=== PATIENT | male | born 1985 | race American Indian/Alaskan Native ===

== ENCOUNTER 2017-08-18 23:15 | Emergency (ER) | payer SELFPAY ==
[2017-08-18 23:52] VITALS: BP 132/81
--- NOTE | 2017-08-19 00:26 | XRay Report ---
FINAL REPORT PROCEDURE: XR CHEST ROUTINE 2V TECHNIQUE: PA and lateral chest radiographs were obtained. CPT 20051 HISTORY: Cough and right rib pain. COMPARISON: No prior studies are available for comparison. FINDINGS: Heart: Normal. Mediastinum/Vessels: Normal. Lungs/Pleural space: Normal. Bony thorax: No acute osseous abnormality. Mild dextro scoliotic curvature of the thoracic lumbar spine. Other: IMPRESSION: No radiographic evidence of acute cardiopulmonary disease.
--- NOTE | 2017-08-19 03:36 | Emergency Department Report ---
Minor Respiratory - HPI Chief Complaint: Upper Respiratory Infection Stated Complaint: RT FLANK PAIN; GAMALIEL Time Seen by Provider: 08/19/17 03:33 Duration: 3 months Severity: mild Minor Respiratory: Yes Able to Tolerate Fluids, Yes Cough, No Rhinorrhea, No Sore Throat, No Ear Pain, No Sick Contacts, No Hemoptysis, No Chest Pain, No Shortness of Breath, No Fever Other History: Patient is a 31-year-old male with no medical history who presents to ED complaining of dry coughing for the past 3 months. Patient states that he get shortness of breath with exertion. Patient states his leisurely Black and mild smoker and does not to daily smoking or tobacco. He denies fever, chest pain, shortness of breath at rest, patient states he takes no medications. He denies any history of asthma and bronchitis. ED Review of Systems ROS: Stated complaint: RT FLANK PAIN; GAMALIEL Other details as noted in HPI Constitutional: denies: chills, fever Eyes: denies: eye pain, eye discharge, vision change ENT: denies: ear pain, throat pain Respiratory: cough, SOB with exertion. denies: shortness of breath, wheezing Cardiovascular: denies: chest pain, palpitations Endocrine: no symptoms reported Gastrointestinal: denies: abdominal pain, nausea, vomiting, diarrhea Genitourinary: denies: urgency, dysuria, frequency, discharge Musculoskeletal: denies: back pain, joint swelling, arthralgia Skin: denies: rash, lesions, pruritus Neurological: denies: headache, weakness, numbness, paresthesias, confusion Psychiatric: denies: anxiety, depression Hematological/Lymphatic: denies: easy bleeding, easy bruising ED Past Medical Hx - Past Medical History Previous Medical History?: No - Surgical History Past Surgical History?: No - Social History Smoking Status: Never Smoker Substance Use Type: None - Medications Home Medications: Home Medications Medication Instructions Recorded Confirmed Last Taken Type ALBUTEROL Inhaler [ProAir HFA 2 puff IH QID PRN #1 pump 08/19/17 Unknown Rx Inhaler] Acetamin/Codeine 120-12Mg/5 ml 5 ml PO TID PRN #60 ml 08/19/17 Unknown Rx [Tylenol/Codeine] guaiFENesin [Robitussin] 200 mg PO TID #80 ml 08/19/17 Unknown Rx predniSONE [Deltasone] 20 mg PO DAILY #4 tablet 08/19/17 Unknown Rx Minor Respiratory Exam - Exam General: Vital signs noted. No distress. Alert and acting appropriately. HEENT: Yes Moist Mucous Membranes, No Pharyngeal Erythema, No Pharyngeal Exudates, No Rhinorrhea, No Conjuctival Injection, No Frontal Tenderness, No Maxillary Tenderness Ear: Neither TM Bulge, Neither TM Erythema, Neither EAC Pain, Neither EAC Discharge Neck: Yes Supple, No Adenopathy Lungs: Yes Good Air Exchange, No Wheezes, No Ronchi, No Stridor, No Cough, No Labored Respirations, No Retractions, No Use of Accessory Muscles, No Other Abnormal Lung Sounds Heart: Yes Regular, No Murmur Abdomen: Yes Normal Bowel Sounds, No Tenderness, No Peritoneal Signs Skin: No Rash, No Edema Neurologic: Alert and oriented, no deficits. Musculoskeletal: Unremarkable. ED Course Vital Signs 08/18/17 23:47 Temperature 98.4 F Pulse Rate 85 Respiratory 20 Rate Blood Pressure 132/81 O2 Sat by Pulse 98 Oximetry ED Medical Decision Making - Radiology Data Radiology results: report reviewed, image reviewed FINAL REPORT PROCEDURE: XR CHEST ROUTINE 2V TECHNIQUE: PA and lateral chest radiographs were obtained. CPT 09343 HISTORY: Cough and right rib pain. COMPARISON: No prior studies are available for comparison. FINDINGS: Heart: Normal. Mediastinum/Vessels: Normal. Lungs/Pleural space: Normal. Bony thorax: No acute osseous abnormality. Mild dextro scoliotic curvature of the thoracic lumbar spine. Other: IMPRESSION: No radiographic evidence of acute cardiopulmonary disease. Transcribed By: JESSICA Dictated By: KELSI POWER MD Electronically Authenticated By: KELSI POWER MD Signed Date/Time: 08/19/17 0021 - Medical Decision Making 31-year-old male presents with bronchitis ED course: Chest x-ray obtained, see report above Discussed findings palpation patient has a mild case of scoliosis which could be causing some of the shortness of breath patient is experiencing. Discussed the patient chronic bronchitis and also cause shortness of breath with exertion Patient has no risk factors or medical conditions, he is in no acute or respiratory distress I discussed patient to follow up with primary care physician. I discussed the patient his symptoms worsen at any time change ED. Critical care attestation.: If time is entered above; I have spent that time in minutes in the direct care of this critically ill patient, excluding procedure time. ED Disposition Clinical Impression: Bronchitis Scoliosis of thoracolumbar spine Qualifiers: Scoliosis type: unspecified scoliosis Qualified Code(s): M41.9 - Scoliosis, unspecified Disposition: TO HOME OR SELFCARE Is pt being admited?: No Does the pt Need Aspirin: No Condition: Stable Instructions: Chronic Bronchitis (ED), Dyspnea (ED) Additional Instructions: Make sure to follow up with the primary care physician as discussed. Take all your medications as you've been prescribed. If you have any worsening symptoms or develop new symptoms please return to ED immediately. Prescriptions: Acetamin/Codeine 120-12Mg/5 ml [Tylenol/Codeine] 5 ml PO TID PRN #60 ml PRN Reason: Pain ALBUTEROL Inhaler [ProAir HFA Inhaler] 2 puff IH QID PRN #1 pump PRN Reason: Shortness Of Breath guaiFENesin [Robitussin] 200 mg PO TID #80 ml predniSONE [Deltasone] 20 mg PO DAILY #4 tablet Referrals: PRIMARY CAREMD [Primary Care Provider] - 3-5 Days GENNY WADE MD [Referring] - 3-5 Days CONCHA MARQUIS MD [Referring] - 3-5 Days [facility] [Outside] - 3-5 Days [facility] [Outside] - 3-5 Days ANA GARCIA MD [Staff Physician] - 3-5 Days Forms: Accompanied Note, Work/School Release Form(ED) Time of Disposition: 04:49
[2017-08-19] MEDS ORDERED: DELTASONE PO ONE (04:16)
[2017-08-19] MEDS ORDERED: ROBITUSSIN PO ONE (04:16)
== END 2017-08-19 05:10 | disposition home or self-care (01) ==
LOC: ED 23:15
DX: J40 Bronchitis, not specified as acute or chronic (principal); M41.9 Scoliosis, unspecified
CPT/HCPCS: 71046; 99283; J7512